=== PATIENT | female | born 1950 | race Caucasian/White ===

== ENCOUNTER 2025-05-31 14:48 | Outpatient (CLI) | payer BC, SELFPAY ==
--- OUTSIDE RECORDS SUMMARY | 2022-06-18 16:14 | XMS_ITS | Encounter Summary ---
[facility] Address [address] [place] [address] Care Team Providers Care Gang Investigator Name Role Phone Jeannette Suárez MD Primary Care Provider [phone] Reason for Visit * Diagnostic Imaging (Routine) - Closed Specialty Diagnoses / Procedures Referred By Contac t Referred To Contact Radiology Diagnoses Goiter Procedures US Thyroid Lance Soto MD [address] [address] Phone: tel: fax: Referral ID Status Reason Start Date Expiration Date Visits Re quested Visits Authorized [id number] Closed 06/18/2022 06/18/2023 1 1 Encounter Details Date Type Department Care Team (Late st Contact Info) Description 06/18/2022 4:14 PM EDT Hospital Encounter [facility] ENDOCRINOLOGY [address] [phone] Social History Tobacco Use Types Packs/Day Years Used Date Smoking Tobacco: Never Smokeless Tobacco: Never Alcohol Use Standard Drinks/Week Comments Yes 1 (1 standard drink = 0.6 oz pur e alcohol) On weekends only AUDIT-C Answer Date Recorded Q1: How often do you have a drink containing alcohol? 4 or more times a week 12/19/2021 Q2: How many drinks containi ng alcohol do you have on a typical day when you are drinking? 1 or 2 Q3: How often do you have si x or more drinks on one occasion? Never 12/19/2021 Comments No Sex and Gender Information Value Date Recorded Sex Assigned at Not on file Legal Sex Female 10:21 AM EDT Gender Identity Not on file Sexual Orientation Not on file documented as of this encounter Plan of Treatment Upcoming Encounters Date Type Department Care Team (Late st Contact Info) Description 06/30/2025 10:30 AM EDT Office Visit [facility] ENDOCRINOLOGY [address] [phone] Lance Soto MD [address] [address] documented as of this encounter Procedures Procedure Name Priority Date/Time Associated Diagnosis Comments US THYROID Routine 06/18/2022 4:14 PM EDT Goiter documented in this encounter Results * US Thyroid (06/18/2022 4:14 PM EDT) Narrative SYSTEMGENERATED, DOCUMENTATION - 06/18/2022 4:14 PM EDT Please see performing physician's note for result. us Lance Soto MD IMG US ORDERABLES Final R esult documented in this encounter Visit Diagnoses Not on filedocumented in this encounter Care Teams Gang Investigator Relationship Specialty Start Date End Date Jeannette Suárez MD PCP - General Family Medicine 11/15/16 07/10/23 documented as of this encounter
--- OUTSIDE RECORDS SUMMARY | 2025-06-01 10:14 | XMS_ITS | Clinical Summary ---
Author Organization Healthcare Address [address] [place] [address] Care Team Providers Care Retail Product Demo Specialist Name Role Phone Jeannette Suárez MD Primary Care Provider [phone] Allergies No known active allergies Medications Levothyroxine Sodium (SYNTHROID PO) 6 Active hydroCHLOROthia zide (HYDRODiuril) 25 MG tablet 0 Active Multiple Vitamins-Minera ls (Multi-Vitamin Gummies) chewable tablet Chew 1 (one) time each day. Active estradiol (Vivelle-DOT) 0.025 MG/24HR APPLY 1 PATCH TO THE SKIN TWICE WEEKLY 4 Active latanoprost (Xalatan) 0.005 % ophthalmic solutionIndicat ions:Chronic open angle glaucoma of both eyes, moderate stage Administer 1 drop into both eyes nightly. 7.5 mL 6 5 Active timolol (Timoptic) 0.5 % ophthalmic solutionIndicat ions:Chronic open angle glaucoma of both eyes, moderate stage Administer 1 drop into both eyes daily. 5 mL 9 5 Active Active Problems Problem Noted Date Diagnosed Date Pinguecula of both eyes 10/16/2023 Posterior subcapsular age-related cataract of ri ght eye 05/23/2021 Chronic open angle glaucoma of both eyes, modera te stage 05/23/2021 Dry eye syndrome of both eyes 05/23/2021 Resolved Problems Problem Noted Date Diagnosed Date Resolved Date Combined forms of age-relate d cataract of both eyes 10/16/2023 05/23/2025 Myopia of both eyes 10/16/2023 05/23/20 25 Regular astigmatism of both eyes 10/16/2023 05/23/2025 Presbyopia 10/16/2023 05/23/2025 Nuclear sclerotic cataract of both eyes 05/23/2021 05/23/2025 Family History Medical History Relation Name Comments Diabetes Other 1 Heart Problem Other 2 Relation Name Status Comments Other 1 Other 2 Social History Tobacco Use Types Packs/Day Years Used Date Smoking Tobacco: Never Passive Smoke Exposure: Never Smokeless Tobacco: Never Tobacco Cessation:Counseling Given: Not Answered Alcohol Use Standard Drinks/Week Comments Yes 0 (1 standard drink = 0.6 oz pure alcohol) Alcoholic Drinks/day: Daily consumption of alcohol Comments Unknown Sex and Gender Information Value Date Recorded Sex Assigned at Not on file Legal Sex Female 7:42 PM EDT Gender Identity Not on file Sexual Orientation Not on file Plan of Treatment Upcoming Encounters Date Type Department Care Team (Late st Contact Info) Description 01/12/2026 9:45 AM EDT Office Visit [facility] [place] [address], [address] [place] [address] Tayler Hinds MD [address] [facility] [address] [place] [address] Health Maintenance Due Date Last Done Comments [facility]-Depression Screening 1950 [facility]-Hepatitis C Screening 1950 [facility]-/Child/Adol SDOH Screenings 1950 [facility]- SDOH Screenings 1970 [facility]-Adult SDOH Screenings 1970 [facility]-DTaP,Tdap,and Td Vaccines (1 - Tdap) 1971 CT Colonography 1997 Colonoscopy 1997 FIT-DNA 1997 FIT 1997 FOBT 1997 Sigmoidoscopy 1997 [facility]-Colorectal Cancer Screening 1997 [facility]-Zoster Vaccines (1 of 2) 2002 [facility]-RSV Vaccine: 60+ Years or (1 - Risk 60-74 years 1-dose series) 2012 [facility]-Bone Density Scan 10/13/2016 10/13/2014 [id number] Vaccine ( season) 2025 07/05/2023, 06/13/2022, 12/10/2021, Additional history exists [facility]-Influenza Vaccine (#1) 05/03/202506/17, 06/11/2023, 06/13/2022, Additional history exists [facility]-Breast Cancer Screening 03/02/2026 07/0 09/2023, 03/02/2024, 03/01/2023, Additional history exists [facility]-Hepatitis A Vaccines Aged Out 01/28/2019, 05/04 No longer eligible based on patient's age to complete this topic [facility]-Pneumococcal Vaccine: 50+ Years Completed 06/11/2023 HPV Vaccines Aged Out No longer eligi ble based on patient's age to complete this topic [facility]-HIB Vaccines Aged Out No longer e ligible based on patient's age to complete this topic [facility]-IPV Vaccines Aged Out No longer e ligible based on patient's age to complete this topic [facility]-Rotavirus Vaccines Aged Out No lo nger eligible based on patient's age to complete this topic Insurance MEDICARE EYEMED Care Teams Retail Product Demo Specialist Relationship Specialty Start Date End Date Jeannette [place] [address] PCP - General 01/13/21
--- OUTSIDE RECORDS SUMMARY | 2025-06-01 10:14 | XMS_ITS | Encounter Summary ---
Author Organization [facility] Address [address] [place] [address] Care Team Providers Care Cdl Service Technician Name Role Phone Jeannette Suárez MD Primary Care Provider [phone] Reason for Visit * Reason Onset Date Comments Med Refill Med Refill 07/20/2021 Encounter Details Date Type Department Care Team (Late st Contact Info) Description 07/11/2021 Refill [facility] [place] [address] , [address] [place] [address] Dominick Peoples MD [address] [place] [address] Social History Tobacco Use Types Packs/Day Years Used Date Smoking Tobacco: Never Smokeless Tobacco: Never Alcohol Use Standard Drinks/Week Comments Yes 0 [...] Description 01/12/2026 9:45 AM EDT Office Visit [facility] [place] [address], [address] [place] [address] Tayler Hinds MD [address] [place] [address] documented as of this encounter Visit Diagnoses Not on filedocumented in this encounter Care Teams Cdl Service Technician Relationship Specialty Start Date End Date Jeannette Suá[place] [address] PCP - General 01/13/21 documented as of this encounter
--- OUTSIDE RECORDS SUMMARY | 2025-06-01 10:14 | XMS_ITS | Clinical Summary ---
[facility] Address [address] [place] [address] Care Team Providers Care Change Control Specialist Name Role Phone Jeannette Suárez MD Primary Care Provider [phone] Allergies No known active allergies Medications latanoprost (XALATAN) 0.005 % ophthalmic solution Administer 1 drop to both eyes Every Night. 1 Active timolol (TIMOPTIC) 0.5 % ophthalmic solution Administer 1 drop to both eyes Every Morning. 1 Active Lorrie 0.025 MG/24HR patch 1 patch 2 (Two) Times a Week. 2 Active hydroCHLOROthia zide (HYDRODIURIL) 25 MG tablet Take 1 tablet by mouth Daily. Active Calcium-Phospho elizabeth-Vitamin D (CALCIUM/VITAMI N D3/ADULT GUMMY PO) Take 2 tablet/day by mouth Daily. Active Iron Carbonyl-Vitami n C-FOS (CHEWABLE IRON PO) Take by mouth Daily. Active Multiple Vitamins-Minera ls (Multi-Vitamin Gummies) chewable tablet Chew Daily. Ac tive levothyroxine (SYNTHROID, LEVOTHROID) 75 MCG tablet Take 1 tablet by mouth Every Morning. 90 tablet 3 4 Active Active Problems Problem Noted Date Diagnosed Date Atrial tachycardia 06/25/2022 Primary hypertension 10/18/2021 Assessment & Plan (07/01/2023 10:01 AM EDT): Hypertension is unchanged. Continue current treatment regimen. Blood pressure will be reassessed at the next regular appointment. Assessment & Plan (06/18/2022 4:07 PM EDT): Hypertension is unchanged. Continue current treatment regimen. Blood pressure will be reassessed at the next regular appointment. Goiter 10/18/2021 Assessment & Plan (06/30/2024 10:53 AM EDT): Neck exam stable. Plan for neck u/s in a year. Assessment & Plan (07/01/2023 10:10 AM EDT): She has h/o small thyroid nodule in the right lower pole that has been stable. She had benign FNA in 2010. Neck is stable to palpation. Plan for another u/s in about 2 years. Assessment & Plan (06/18/2022 4:32 PM EDT): A neck u/s was performed today. This revealed mild enlargement of both thyroid lobes. There was diffuse heterogeneity noted in both lobes and isthmus. There was a solid nodule at the right inferior pole. It measured 1.1cm in size. This appears stable compared to u/s from 07/2019. No abnormal lymph nodes were seen. Plan for another u/s in 3 years. Hypothyroidism (acquired) 10/18/2021 Assessment & Plan (06/30/2024 10:53 AM EDT): Continue T4 tx. Check TSH. Assessment & Plan (07/01/2023 10:01 AM EDT): Continue T4 tx. Check TSH. Assessment & Plan (06/18/2022 4:13 PM EDT): Continue T4. Check TSH. Atrial flutter 09/20/2021 Overview (10/18/2021): a. Episode of an irregular, fast heart rhythm 20 years ago following hysterectomy. b. History of episode 4 years ago that lasted 10 minutes. c. History of normal echocardiogram, 01/18/2011, Janice Sehpherd MD, revealing normal LVEF of 60% to 65%, with no evidence of AR, 1+ MR, 1+ TR with an RVSP of 39. d. Normal nuclear perfusion study, 01/18/2011, Janice Shepherd MD. e. Episode of a fast heart rhythm, June 2014, with [facility] ER presentation, with an EKG that revealed atrial flutter at a rate of 180. f. CHADSVASC = 3 (female, age, HTN) g. Reviewed EKGs from 07/2021 which reveal 2:1 Aflutter, typical appearing. Resolved Problems Problem Noted Date Diagnosed Date Resolved Date Atrial flutter, unspecified type 12/19/2021 06/25/2022 Encounters Date Type Department Care Team Description 03/03/2025 9:34 AM EDT - 03/03/2025 11:59 PM EDT Hospital Encounter [address] [address] Jeannette Suárez MD Visit for screening mammogram Discharge Disposition: Home or Self Care 03/03/2025 Travel from Last 3 Months Immunizations Immunization Administration Dates Next Due Covid-19 (Pfizer) [place] Cap Monovalent 10/27/2020 ,10/04/2020 Family History Medical History Relation Name Comments No Known Problems Brother COPD Father Jonah Mirza Diabetes Father Jonah Mirza Intracerebral hemorrhage Mother Breast cancer Paternal Aunt No Known Problems Sister Ovarian cancer Neg Hx Relation Name Status Comments Brother Alive Father Jonah Mirza Mother Paternal Aunt Sister Alive Social History Tobacco Use Types Packs/Day Years Used Date Smoking Tobacco: Never Smokeless Tobacco: Never Tobacco Cessation:Counseling Given: Not Answered Alcohol Use Standard Drinks/Week Comments Yes 1 [...] on file Sexual Orientation Not on file Last Filed Vital Signs Vital Sign Reading Time Taken Comments Blood Pressure 116/77 06/30/2024 10:32 AM EDT Pulse 68 06/30/2024 10:32 AM EDT Temperature 36.4 C (97.5 F) 12/19/2021 10:32 AM EDT Respiratory Rate 12 12/19/2021 1:56 PM EDT Oxygen Saturation 97% 06/30/2024 10:32 AM EDT Inhaled Oxygen Concentration - - Weight 69.9 kg (154 lb) 06/30/2024 10:32 AM EDT Height 167.6 cm (5' 6 ) 06/30/2024 10:32 AM EDT Body Mass Index 24.86 06/30/2024 10:32 AM EDT Plan of Treatment Upcoming Encounters Date Type Department Care Team (Late st Contact Info) Description 06/30/2025 10:30 AM EDT Office [facility] [address] [facility] [address] [place] [phone] Lance Soto MD [address] [place] [address] Health Maintenance Due Date Last Done Comments TDAP/TD VACCINES (1 - Tdap) 1971 COLOGUARD 1997 COLON CANCER SCREENING 5 YEA R SIGMOID[address]COPY [address] COLONOGRAPHY 1997 FECAL OCCULT BLOOD TEST 1997 FIT Testing (1 year) 1997 ZOSTER VACCINE (1 of 2) 2002 DXA SCAN 10/13/2016 10/13/2014 ANNUAL PHYSICAL 05/07/2018 HEPATITIS C SCREENING 05/07/2018 INFLUENZA VACCINE 04/02/2025 06/17/2024, , 06/13/2022, Additional history exists COVID-19 Vaccine (2024- 6 season) 2025 07/05/2023, 06/13/2022, 12/10/2021, Additional history exists MAMMOGRAM 03/07/2027 03/07/2025, 07/10/2024, 03/02/2024, Additional history exists COLONOSCOPY 05/22/2028 05/22/2018 COLORECTAL CANCER SCREENING 05/22/2028 Pneumococcal Vaccine 50+ Completed 06/11/2023 Procedures Procedure Name Priority Date/Time Associated Diagnosis Comments MAMMO SCREENING DIGITAL TOMOSYNTHESIS BILATERAL W CAD Routine 03/03/2025 9:54 AM EDT Visit for screening mammogram SCANNED - COLONOSCOPY 05/22/2018 DEXA BONE DENSITY AXIAL Routine 10/13/2014 1:40 PM EST from Last 3 Months or Most Recently Relevant to Health Maintenance Results * Mammo Screening Digital Tomosynthesis Bilateral With CAD (03/03/2025 9:54 AM EDT) Anatomical Region Laterality Modality Breast N/A Mammography 03/07/2025 4:29 PM EDT Impressions 03/07/2025 4:30 PM EDT Negative bilateral mammogram. RECOMMENDATION: Continue annual screening mammography. BI-RADS CATEGORY 1, NEGATIVE. CAD was utilized. The standard false-negative rate of mammography is between 10% and 25%. Complex patterns or increased breast density will markedly elevate the false-negative rate of mammography. A letter, in lay terminology, with the results of this exam will be mailed to the patient. 03/07/2025 4:[address] Nancie Mosqueda MD on Narrative 03/07/2025 4:30 PM EDT DIGITAL SCREENING MAMMOGRAM WITH TOMOSYNTHESIS HISTORY: Screening Mammography. Low dose full field digital breast tomosynthesis imaging was performed with 2D and 3D acquisitions consisting of bilateral CC and MLO views. Examination is compared to prior examination dating back to 11/15/2016. Examination is read in conjunction with computer aided detection. FINDINGS: There are scattered areas of fibroglandular density. No suspicious masses, microcalcifications or areas of architectural distortion are present. us Jeannette Suárez MD IM MAMMOGRAPHY ORDERABLES Final Result * SCANNED - COLONOSCOPY (05/22/2018) us Jeannette Suárez MD CHART REVIEW TABS Final Result * DEXA BONE DENSITY AXIAL (10/13/2014 1:40 PM EST) Anatomical Region Laterality Modality Wrist, Hip, L-spine N/A Radiographic Imaging 10/13/2014 1:40 PM EST Narrative 10/13/2014 6:09 PM EST BONE DENSITOMETRY: HISTORY: 64-year-old patient on calcium and vitamin D supplementation hormone replacement therapy. She is also on levothyroxine for hypothyroidism. COMPARISON: 08/20/2012, 12/15/2007, 12/02/2002, and 01/24/2000 EXAM: The bone densitometry was evaluated by determining the bone mineral density (BMD) of the first four lumbar vertebral bodies and at 4 sites in the right femur . The World Health Organization ten year fracture risk assessment (FRAX) was then calculated based on the patient's bone mineral density and specific International Society of Clinical Densitometry (ISCD) qualifiers, as provided by the patient's personal risk history (attached). The T value compares the patient's BMD with the peak BMD of young normal patients. Postmenopausal patients with T values between 1 and 2.5 standard deviations below the mean are osteopenic. Patients with T values greater than 2.5 standard deviations below the mean are osteoporotic. The Z score compares the patient's BMD with age and sex matched peers. Premenopausal patients with Z scores below 2.0 have lower than expected bone mineral density. The average bone mineral density in the lumbar spine is 1.271 grams per square cm. This represents a T value of 0.8 and a Z score of 2.0. The average bone mineral density of the right hip is 1.003 grams per square cm. The average T value is 0.0. The Z score is 0.9. The T value of the femoral neck is -1.0. IMPRESSION- The BMD is normal. There has been a statistically significant increase in the bone mineral density of the lumbar spine of 8.2% compared to the baseline 1999 exam. No significant change is identified in the right hip or in the lumbar spine compared to the prior 2011 exam. FOLLOWUP: Consider repeating the study in 2-3 years to reassess the patient's status or sooner if there is some new clinical indication. Reading Radiologist- DARRELL GARRIDO Releasing Radiologist- DARRELL GARRIDO Released Date Time- 10/14/14 0958 Magnetic Resonance Imaging Director- M.H. Iban Dos Santos MD IMG DXA ORDERABLES Final Result from Last 3 Months or Most Recently Relevant to Health Maintenance Insurance MEDICARE A ONLY Member Subscriber Plan / Payer (Ef fective 2017-Present) Name:Silvana Garrett Member ID:[id number] Relation to Subscriber:Self Name:Silvana Garrett Subscriber ID:[id number] Payer ID:[id number] Group ID:Not on file Type:Not on file Address[id number] Member Subscriber Plan / Payer (Ef fective 2020-Present) Name:Silvana Garrett Relation to Subscriber:Spouse Name:VASILECATRACHITO De La Cruz Date of :1951 (Home) Address: [address] [place] [address] Payer ID:[id number] (NAIC) Type:Not on file Address: [address] [place] [phone] Care Teams Change Control Specialist Relationship Specialty Start Date End Date Jeannette Suárez MD [address] [place] [address] [place] [address] PCP - General Family Medicine 07/11/23
== END 2025-05-31 23:59 | disposition home or self-care (01) ==
LOC: LAB.DROPOF 06-01 10:12
PROVIDERS: PCP Podiatrist; Visit Provider Podiatrist
DX: B35.1 Tinea unguium (principal)
CPT/HCPCS: 87101; 87220